=== PATIENT | male | born 1995 | race African-American/Black ===

== ENCOUNTER 2018-06-06 21:27 | Outpatient (CLI) | payer OTHER | END 2018-06-06 21:28 | disposition critical access hospital (66) | LOC: EMS 21:27 | PROVIDERS: ATTEND Surgery | DX: K92.0 Hematemesis (principal); R53.1 Weakness; R42 Dizziness and giddiness | CPT/HCPCS: A0425; A0427 ==

== ENCOUNTER 2018-06-06 21:53 | Inpatient (IN) | payer OTHER ==
[2018-06-06] MEDS ORDERED: PANTOPRAZOLE 40 MG VIAL IVP STA (22:07)
[2018-06-06] MEDS ORDERED: SODIUM CHLORIDE 0.9% 1,000 ML IV ONE ×2 (22:07)
--- NOTE | 2018-06-06 22:11 | ED Physician Documentation ---
History of Present Illness - Stated complaint Stated Complaint: VOMITING, SYNCOPE - Chief complaint Chief Complaint: Abd Pain - History obtained from History obtained from: Patient, EMS - History of Present Illness Timing: Yesterday Pain level max: 5 Pain level now: 4 Improved by: nothing Worsened by: eating, standing - Additonal information Additional information: Patient is a 22-year-old male who is status post wisdom tooth extraction on May 25. He states that he has had continued pain since that time and some minor bleeding. States started feeling lightheaded and dizzy with standing yesterday and near syncopal. Was seen at the [facility] and given IV fluids. No lab work done. States he also has right upper quadrant abdominal pain and vomited tonight x1. There was blood in the vomit. Has been taking aspirin twice a day for the last 2 weeks for his postoperative pain. Denies any trauma. Is not on any other medications at home. Does smoke, does not use alcohol or other drugs. Review of Systems Ten Systems: 10 systems reviewed and negative Constitutional: denies: Fever, Chills Ears: denies: Ear pain Nose: denies: Rhinorrhea / runny nose, Congestion GI: reports: Nausea, Vomiting, Hematemesis (x1) : denies: Dysuria, Frequency, Hesitancy Skin: denies: Rash Musculoskeletal: denies: Neck pain, Back pain Neurologic: denies: Headache PD PAST MEDICAL HISTORY - Past Medical History Past Medical History: No - Past Surgical History Past Surgical History: Yes - Allergies Allergies/Adverse Reactions: Allergies Allergy/AdvReac Type Severity Reaction Status Date / Time No Known Drug Allergies Allergy Verified 06/06/18 22:02 - Social History Does the pt smoke?: Yes Smoking Status: Current every day smoker Does the pt drink ETOH?: Yes Does the pt have substance abuse?: No - Immunizations Immunizations are current?: Yes - POLST Patient has POLST: No PD ED PE NORMAL - Vitals Vital signs reviewed: Yes - General General: Alert and oriented X 3, No acute distress, Other (pale) - HEENT HEENT: PERRL, Moist mucous membranes, Pharynx benign - Neck Neck: Supple, no meningeal sign - Cardiac Cardiac: RRR, Strong equal pulses - Respiratory Respiratory: No respiratory distress, Clear bilaterally - Abdomen Abdomen: Soft, Non distended, Other (TTP RUQ, no peritoneal signs. neg ewing's sign) - Back Back: No CVA TTP, No spinal TTP - Derm Derm: Warm and dry - Extremities Extremities: No edema - Neuro Neuro: Alert and oriented X 3 - Psych Psych: Normal mood, Normal affect Results - Vitals Vitals: Vital Signs - 24 hr 06/06/18 06/06/18 21:55 22:56 Temperature 36.6 C Heart Rate 104 H 102 H Respiratory 16 19 Rate Blood Pressure 111/60 109/67 O2 Saturation 100 100 Oxygen O2 Source Room air - EKG (time done) 2208 Rate: Rate (enter#) (98) Rhythm: NSR [place]: Normal Intervals: Normal DC QRS: Normal Ischemia: ST elevation c/w repol - Labs Labs: Laboratory Tests 06/06/18 06/06/18 06/06/18 22:15 22:15 22:15 WBC 8.3 RBC 1.62 L Hgb 4.7 L* Hct 14.4 L* MCV 89.1 MCH 29.2 MCHC 32.8 RDW 13.0 Plt Count 215 MPV 7.6 Neut # (Auto) 5.7 Lymph # (Auto) 2.0 Cataño # (Auto) 0.5 Eos # (Auto) 0.0 Baso # (Auto) 0.0 Absolute Nucleated RBC 0.02 Nucleated RBC % 0.2 PT 15.9 H INR 1.4 H APTT Sodium 135 Potassium 3.9 Chloride 107 Carbon Dioxide 27 Anion Gap 1.0 L BUN 26 H Creatinine 0.8 Estimated GFR (MDRD) 148 Glucose 114 H Calcium 7.5 L Total Bilirubin 0.4 AST 14 ALT 11 Alkaline Phosphatase 32 L Total Protein 4.5 L Albumin 2.6 L Globulin 1.9 L Albumin/Globulin Ratio 1.4 Lipase 22 Blood Type Blood Type Recheck Antibody Screen Crossmatch IS Only 06/06/18 06/06/18 06/06/18 22:15 22:15 22:40 WBC RBC Hgb Hct MCV MCH MCHC RDW Plt Count MPV Neut # (Auto) Lymph # (Auto) Cataño # (Auto) Eos # (Auto) Baso # (Auto) Absolute Nucleated RBC Nucleated RBC % PT INR APTT 24.7 L Sodium Potassium Chloride Carbon Dioxide Anion Gap BUN Creatinine Estimated GFR (MDRD) Glucose Calcium Total Bilirubin AST ALT Alkaline Phosphatase Total Protein Albumin Globulin Albumin/Globulin Ratio Lipase Blood Type O POSITIVE Cancelled Blood Type Recheck Antibody Screen NEGATIVE Cancelled Crossmatch IS Only See Detail 06/06/18 22:40 WBC RBC Hgb Hct MCV MCH MCHC RDW Plt Count MPV Neut # (Auto) Lymph # (Auto) Cataño # (Auto) Eos # (Auto) Baso # (Auto) Absolute Nucleated RBC Nucleated RBC % PT INR APTT Sodium Potassium Chloride Carbon Dioxide Anion Gap BUN Creatinine Estimated GFR (MDRD) Glucose Calcium Total Bilirubin AST ALT Alkaline Phosphatase Total Protein Albumin Globulin Albumin/Globulin Ratio Lipase Blood Type Blood Type Recheck O POSITIVE Antibody Screen Crossmatch IS Only - Rads (name of study) CT abd/pelvis Radiology: Prelim report reviewed, EMP read contemporaneously, See rad report (normal) PD MEDICAL DECISION MAKING - ED course Complexity details: reviewed results, re-evaluated patient, considered differential, d/w patient, d/w sales and service consultant ED course: Patient is a 22-year-old male with what appears to be a bleeding gastric ulcer, likely secondary to his heavy aspirin use over the past 2 weeks. Given Protonix IV. He found to be significantly anemic. Packed red blood cells ordered. Consent obtained. Discussed the case with Dr. Johnson, hospitalist who accepts. Also spoke with Dr. Larry (gen surg) who will consult. This document was made in part using voice recognition software. While efforts are made to proofread this document, sound alike and grammatical errors may occur. Departure - Departure Disposition: [facility] DC/Xfer Clinical Impression: Upper GI bleed Anemia Qualifiers: Anemia type: unspecified type Qualified Code(s): D64.9 - Anemia, unspecified Condition: Stable
[2018-06-06] MEDS ORDERED: IOPAMIDOL-300 100 ML VIAL ONE (22:16)
[2018-06-06 22:26] LABS: BASOPHILS % (AUTO) 0.4 %; EOSINOPHILS % (AUTO) 0.2 %; LYMPHOCYTES % (AUTO) 23.9 %; MEAN CORPUSCULAR HEMOGLOBIN 29.2 pg (27.0-31.0); MEAN CORPUSCULAR HGB CONC 32.8 g/dL (32.0-36.0); MEAN CORPUSCULAR VOLUME 89.1 fL (80.0-94.0); MEAN PLATELET VOLUME 7.6 fL (7.4-11.4); MONOCYTES # (AUTO) 0.5 10^3/uL (0.0-1.0); NEUTROPHILS # (AUTO) 5.7 10^3/uL (1.5-6.6); NEUTROPHILS % (AUTO) 69.5 %; PLT - PLATELET COUNT 215 10^3/uL (130-450); RED BLOOD COUNT 1.62 10^6/uL (4.70-6.10); WHITE BLOOD COUNT 8.3 x10^3/uL (4.8-10.8)
[2018-06-06 22:27] LABS: HGB - HEMOGLOBIN 4.7 g/dL (14.0-18.0)
[2018-06-06] MEDS ORDERED: IOPAMIDOL-300 100 ML VIAL IVP ONE (22:27)
[2018-06-06 22:30] LABS: INR 1.4 (0.8-1.2); PT - PROTHROMBIN TIME 15.9 secs (9.9-12.6)
[2018-06-06 22:40] LABS: ALBUMIN 2.6 g/dL (3.2-5.5); ALBUMIN/GLOBULIN RATIO 1.4 (1.0-2.2); BILIRUBIN,TOTAL 0.4 mg/dL (0.2-1.0); CALCIUM 7.5 mg/dL (8.5-10.3); CREATININE 0.8 mg/dL (0.6-1.2); TOTAL PROTEIN 4.5 g/dL (6.7-8.2)
[2018-06-06] MEDS ORDERED: HYDROmorphone 0.5 MG/0.5 ML SYRINGE IVP PRN (22:48)
[2018-06-06] MEDS ORDERED: PROCHLORPERAZINE 10 MG/2 ML VIAL IVP PRN (22:48)
[2018-06-06] MEDS ORDERED: ONDANSETRON 4 MG/2 ML VIAL IVP PRN (22:48)
[2018-06-06] MEDS ORDERED: ONDANSETRON ODT 4 MG TABLET TL PRN (22:48)
--- NOTE | 2018-06-06 22:51 | CT Report ---
Reason: upper abd pain, vomiting Procedure Date: 06/06/2018 Accession Number: [id number] / [id number] Procedure: CT - Abdomen/Pelvis W/ CPT Code: FULL RESULT: EXAM: CT ABDOMEN AND PELVIS EXAM DATE: 06/06/2018 10:25 PM. CLINICAL HISTORY: Abdominal pain COMPARISONS: None. TECHNIQUE: Routine helical CT imaging was performed through the abdomen and pelvis. IV contrast: ISOVUE 300 100mL. Enteric contrast: No. Reconstructions: Coronal and sagittal. In accordance with CT protocol optimization, one or more of the following dose reduction techniques were utilized for this exam: automated exposure control, adjustment of mA and/or KV based on patient size, or use of iterative reconstructive technique. FINDINGS: Lung Bases: Unremarkable. Liver: Normal. No masses. Gallbladder/Bile Ducts: Unremarkable. Spleen: Normal. Pancreas: Normal. Adrenal Glands: Normal. Kidneys: Likely small nonobstructing stone within the left kidney. No evidence of obstructing stone or hydronephrosis. Peritoneal Cavity/Bowel: Stomach and small bowel demonstrate no acute abnormalities. Mild wall thickening of the lower right colon without evidence of adjacent inflammatory stranding is probably peristalsis. The appendix is not definitely seen. There is no evidence of right lower quadrant inflammatory stranding to indicate presence of acute appendicitis. There are no enlarged mesenteric or retroperitoneal lymph nodes. Pelvic Organs: No acute pelvic organ abnormalities are seen. Vasculature: No acute vascular findings. No enlarged mesenteric or retroperitoneal lymph nodes. Bones: No significant abnormality. Other: None. IMPRESSION: Negative contrast enhanced CT of the abdomen and pelvis. RADIA
[2018-06-06] MEDS ORDERED: SODIUM CHLORIDE 0.9% 1,000 ML IV SCH (23:00)
--- NOTE | 2018-06-06 23:00 | HISTORY & PHYSICAL EXAMINATION ---
Chief Complaint - Chief Complaint Chief Complaint: Vomiting blood today History of Present Illness - Admitted From Admitted From:: Home/emergency room - History Obtained From Records Reviewed: [facility] History obtained from: Patient of Dr. Daniel Exam Limitations: None - History of Present Illness HPI Comment/Other: 22-year-old white male who is healthy. He has no major medical illnesses. Recently had his wisdom tooth extracted May 25 and has been taking aspirin to control the pain. Has had some minor localized bleeding at his gums. For about 4 or 5 days he has been having black tarry stools. He just thought he was dehydrated so he drank more water. Yesterday he did not feel well. Slightly nauseated and became lightheaded and passed out when he stood up. [facility] and he was given IV fluids but no lab work was done. Today he is continued to feel lightheaded and dizzy every time he tries to stand. He would feel better be sat back down. Tonight he started having epigastric and right upper quadrant abdominal discomfort. He had Nausea withemesis and there was blood in the vomit. He does vaping cigarettes. Stopped smoking tobacco 5 months ago. He does not drink. He does not have history of peptic ulcer disease. He was seen by Dr. Daniel in the emergency room where he was afebrile, slightly tachycardic at 104 with a blood pressure 111/60 and 100% on room air. BUN was mildly elevated at 26. Hemoglobin was 4.7 and hematocrit 14.4. White cell count was 8.3. He is now admitted for upper GI bleed. He will be admitted to our service and we will consult Dr. Larry, general surgery for possible EGD. History - Past Medical History Cardiovascular: reports: None Respiratory: reports: None Neuro: reports: None Endocrine/Autoimmune: reports: None GI: reports: None INTEGRATION ARCHITECT: reports: None : reports: None HEENT: reports: None Psych: reports: None Musculoskeletal: reports: None MRSA Hx?: No - Family & Social History Family History Comment/Other: Mom is 52 years old and is healthy without any problems of diabetes, hypertension, coronary artery disease, kidney disease. Dad is 49 years old and is also completely healthy. 2 half siblings. 1 of them is a type I diabetic by description. No children Living arrangement: At home Living Situation: With spouse/s.o. Social History Notes: He was born in [place] but raised in [place]. From [place] he lived in [place] in [facility]. Once he was in the [place] he [place]. He may be left when he says that he still likes [place] better. He drinks socially. Maybe 1 or 2 drinks a week. He lives with his girlfriend. He started smoking at the age of 18 and quit smoking 5 months ago. One pack per day. He now does vaping. He has no history of recreational substance abuse. - Substance History Use: Uses substance without health or social issues: Other (Vaping) Abuse: Recurrent use of substance despite neg consequences: NONE Dependence: Experiences withdrawal or developed tolerances: NONE - POLST Patient has POLST: No POLST Status: Full Code Meds/Allgy - Allergies Allergies/Adverse Reactions: Allergies Allergy/AdvReac Type Severity Reaction Status Date / Time No Known Drug Allergies Allergy Verified 06/06/18 22:02 Review of Systems - Constitutional Constitutional: reports: Fatigue, Malaise, Weakness, Poor appetite. denies: Fever, Chills, Diaphoresis, Night sweats - Eyes Eyes: denies: Pain, Irritation, Amaurosis, Blurred vision, Vision loss - Ears, Nose & Throat Ears, Nose & Throat: denies: Tinnitus, Vertigo, Nasal pain, Nasal obstruction, Nasal congestion, Postnasal drainage, Sore throat - Cardiovascular Cariovascular: reports: Lightheadedness, Syncope, Exertional dyspnea, Decr. exercise tolerance, Other (All of his orthostatic symptoms or in the last couple of days.). denies: Irregular heart rate, Palpitations, Chest pain, Edema - Respiratory Respiratory: reports: SOB with exertion. denies: Cough, Sputum production, Wheezing, Snoring, Hemoptysis, Orthopnea, SOB at rest, Apnea - Gastrointestinal Gastrointestinal: reports: Abdominal pain, Black stools, Nausea, Vomiting, Tony blood emesis, Poor appetite. denies: Abdominal distention, Constipation, Diarrhea, Change in bowel habits, Rectal bleeding, Bloody stools, Coffee grounds emesis, Reflux/heartburn, Bloating - Genitourinary Genitourinary: denies: Dysuria, Frequency, Urgency, Hematuria, Incontinence, Nocturia - Musculoskeletal Musculoskeletal: denies: Muscle pain, Back pain, Muscle weakness, Gout, Joint pain - Integumentary Integumentary: denies: Rash, Pruritis, Lesions, Pigment changes - Neurological Neurological: reports: General weakness, Dizziness. denies: Focal weakness, Headache, Numbness, Memory problems, Pre-existing deficit, Abnormal gait, Seizures - Psychiatric Psychiatric: denies: Depression, Anxiety, Suicidal, Delusions - Endocrine Endocrine: denies: Polyuria, Polydypsia, Polyphagia - Hematologic/Lymphatic Hematologic/Lymphatic: denies: Anemia, Bruising, Petechiae, Blood clots Prior Level of Functionality: [employer] duty [employer]. Still works full-time As air traffic control. Has no limitations with regards to musculoskeletal or cardiovascular deficiencies. Exam - Vital Signs Reviewed Vital Signs: Yes Vital Signs: Vital Signs x48h Temp Pulse Resp BP Pulse Ox 06/06/18 21:55 36.6 C 104 H 16 111/60 100 - Physical Exam General Appearance: positive: No acute distress, Alert, Other (Pale, pale young black male who is very tired, Significant other is at the bedside) Eyes Bilateral: positive: PERRL, EOMI ENT: positive: Dry mucous membranes. negative: Purulent nasal drainage, Pharyngeal erythema, Oral lesions Neck: positive: No JVD. negative: Stiff neck, Carotid bruit Respiratory: positive: Chest non-tender, No respiratory distress. negative: Wheezes, Rales, Rhonchi Cardiovascular: positive: Regular rate & rhythm, Systolic murmur. negative: Gallop/S4, Friction rub Peripheral Pulses: positive: 1+ Abdomen: positive: Nml bowel sounds, No distention, Tenderness (In the epigastrium that is mild.). negative: Guarding, Rebound Skin: positive: Warm, Dry, Pallor Extremities: positive: Non-tender, Full ROM, No pedal edema Neurologic/Psychiatric: positive: Oriented x3, CN's nml (2-12), Motor nml, Sensation nml Reflexes: Bicep (R): 1+, Bicep (L): 1+, Knee (R): 1+, Knee (L): 1+ Babinski Reflex: Right: Down, Left: Down Conclusion/Plan - Problem List (1) Hematemesis/vomiting blood Conclusion/Plan: Most likely from the history, nonsteroidal induced gastritis if not ulcer. This is a healthy gentleman who does not smoke or drink. Plan: Place in acute inpatient status General surgery consult Hopefully EGD tomorrow or the next day Transfusion Proton pump inhibitors Continue to monitor closely with every 6 hours hemoglobin and hematocrit Octreotide if necessary but not right now Qualifiers: Nausea presence: with nausea Qualified Code(s): K92.0 - Hematemesis (2) Acute post-hemorrhagic anemia Conclusion/Plan: Transfusion of 2 units of packed cells already ordered by ER physician. We will continue to check hemoglobin and hematocrit every 6 hours. Check orthostatics. May need 2 more units after that. (3) Orthostatic hypotension Conclusion/Plan: In the emergency room he is only mildly tachycardic with a normal blood pressure. Will have nursing document orthostasis on the floor with vital signs. In addition to 2 units of packed cells, gently hydrate with normal saline. Keep n.p.o. until we find out from surgery if he is going to get an EGD or not. - Lab Results Fish Bones: 06/06/18 22:15 06/06/18 22:15 - Diagnostic Imaging Results Diagnostic Imaging Results: positive: Final report reviewed Diagnostic Imaging Results Comments: CT ABDOMEN AND PELVIS EXAM DATE: 06/06/2018 10:25 PM. CLINICAL HISTORY: Abdominal pain COMPARISONS: None. TECHNIQUE: Routine helical CT imaging was performed through the abdomen and pelvis. IV contrast: ISOVUE 300 100mL. Enteric contrast: No. Reconstructions: Coronal and sagittal. In accordance with CT protocol optimization, one or more of the following dose reduction techniques were utilized for this exam: automated exposure control, adjustment of mA and/or KV based on patient size, or use of iterative reconstructive technique. FINDINGS: Lung Bases: Unremarkable. Liver: Normal. No masses. Gallbladder/Bile Ducts: Unremarkable. Spleen: Normal. Pancreas: Normal. Adrenal Glands: Normal. Kidneys: Likely small nonobstructing stone within the left kidney. No evidence of obstructing stone or hydronephrosis. Peritoneal Cavity/Bowel: Stomach and small bowel demonstrate no acute abnormalities. Mild wall thickening of the lower right colon without evidence of adjacent inflammatory stranding is probably peristalsis. The appendix is not definitely seen. There is no evidence of right lower quadrant inflammatory stranding to indicate presence of acute appendicitis. There are no enlarged mesenteric or retroperitoneal lymph nodes. Pelvic Organs: No acute pelvic organ abnormalities are seen. Vasculature: No acute vascular findings. No enlarged mesenteric or retroperitoneal lymph nodes. Bones: No significant abnormality. Other: None. IMPRESSION: Negative contrast enhanced CT of the abdomen and pelvis. Core Measures - Anticipated LOS I expect patient to be DC'd or transferred within 96 hours.: Yes - DVT/VTE - Prophylaxis VTE/DVT Device ordered at admit?: Yes
[2018-06-07] MEDS ORDERED: SODIUM CHLORIDE 0.9% 500 ML IV ONE ×2 (02:49→06:26)
[2018-06-07] MEDS: ACETAMINOPHEN 325 MG TABLET PO PRN ×3 (03:29→16:50)
[2018-06-07] MEDS: SODIUM CHLORIDE FLUSH 0.9% 10 ML SYRINGE IVP PRN ×4 (05:15→16:23)
[2018-06-07] MEDS: PANTOPRAZOLE 40 MG VIAL IVP SCH ×2 (06:31→16:24)
--- NOTE | 2018-06-07 09:17 | CONSULTATION NOTE ---
Referring Provider Consult Date: 06/07/18 Chief Complaint - Chief Complaint Chief Complaint: hematemesis History of Present Illness - History of Present Illness HPI Comment/Other: 22 yo man s/p wisdom teeth extraction May 26, took NSAIDs for a number of days prior to developing melena for a few days and finally hematemesis yesterday. He came to the ER at that point. The vomiting stopped spontaneously. He was profoundly anemic in the ER and admitted for workup and transfusion. History - Past Medical History Cardiovascular: reports: None Respiratory: reports: None Neuro: reports: None Endocrine/Autoimmune: reports: None GI: reports: None NATURAL RESOURCES ENGINEER: reports: None : reports: None HEENT: reports: None Psych: reports: None Musculoskeletal: reports: None Derm: reports: None MRSA Hx?: No - Family & Social History Family History Comment/Other: Mom is 52 years old and is healthy without any problems of diabetes, hypertension, coronary artery disease, kidney disease. Dad is 49 years old and is also completely healthy. 2 half siblings. 1 of them is a type I diabetic by description. No children Living arrangement: At home Living Situation: With spouse/s.o. Social History Notes: He was born in [place] but raised in [place]. From [place] he lived in [place] in [facility]. Once he was in the [employer] he has been [place]. He may be left when he says that he still likes [place] better. He drinks socially. Maybe 1 or 2 drinks a week. He lives with his girlfriend. He started smoking at the age of 18 and quit smoking 5 months ago. One pack per day. He now does vaping. He has no history of recreational substance abuse. - Substance History Use: Uses substance without health or social issues: Other (Vaping) Abuse: Recurrent use of substance despite neg consequences: NONE Dependence: Experiences withdrawal or developed tolerances: NONE - POLST Patient has POLST: No POLST Status: Full Code Meds/Allgy - Allergies Allergies/Adverse Reactions: Allergies Allergy/AdvReac Type Severity Reaction Status Date / Time No Known Drug Allergies Allergy Verified 06/06/18 22:02 Review of Systems - Constitutional Constitutional: reports: Fatigue - Neurological Neurological: reports: General weakness - Hematologic/Lymphatic Hematologic/Lymphatic: reports: Anemia Exam - Vital Signs Vital Signs: Vital Signs x48h Temp Pulse Pulse Pulse Pulse Resp BP 06/07/18 09:00 36.8 C 99 103 H 99 16 06/07/18 08:56 36.8 C 97 18 112/53 L 06/07/18 06:57 37.1 C 93 16 97/45 L 06/07/18 06:39 37.3 C 97 16 96/46 L 06/07/18 05:20 37.3 C 100 16 93/47 L 06/07/18 03:20 38.1 C H 110 H 16 96/43 L 06/07/18 02:55 38.1 C H 106 H 16 99/54 L BP BP BP Pulse Ox 06/07/18 09:00 112/53 L 111/59 L 112/53 L 100 06/07/18 08:56 06/07/18 06:57 06/07/18 06:39 06/07/18 05:20 06/07/18 03:20 06/07/18 02:55 - Physical Exam General Appearance: positive: No acute distress Eyes Bilateral: positive: Normal inspection ENT: positive: ENT inspection nml Neck: positive: Nml inspection Respiratory: positive: Chest non-tender Cardiovascular: positive: Regular rate & rhythm Abdomen: positive: Non-tender Back: positive: Nml inspection Skin: positive: Color nml Extremities: positive: Non-tender Neurologic/Psychiatric: positive: Oriented x3 Conclusion/Plan - Diagnosis Diagnosis: GI bleed - Plan Plan: Pt reports no bleeding from the surgical site after extraction. Most likely he had a bleeding peptic ulcer. It seems that the bleeding has stopped now, but he should still be scoped to make sure. The pt agrees. He understands the risks and benefits of an EGD. - Lab Results Fish Bones: 06/06/18 22:15 06/06/18 22:15
[2018-06-07 10:01] LABS: MEAN CORPUSCULAR HEMOGLOBIN 29.9 pg (27.0-31.0); MEAN CORPUSCULAR VOLUME 85.3 fL (80.0-94.0); MEAN PLATELET VOLUME 7.4 fL (7.4-11.4); RED BLOOD COUNT 2.13 10^6/uL (4.70-6.10); RED CELL DISTRIBUTION WIDTH 14.4 % (12.0-15.0); WHITE BLOOD COUNT 8.6 x10^3/uL (4.8-10.8)
[2018-06-07 10:04] LABS: HGB - HEMOGLOBIN 6.4 g/dL (14.0-18.0)
[2018-06-07] MEDS: POLYETHYLENE GLYCOL 3350 17 GM PACKET PO SCH (10:05)
[2018-06-07] MEDS: SODIUM CHLORIDE FLUSH 0.9% 10 ML SYRINGE IVP SCH ×3 (10:06→16:29)
[2018-06-07 11:18] LABS: BILIRUBIN,URINE NEGATIVE (NEGATIVE); CLARITY,URINE CLEAR (CLEAR); GLUCOSE, URINE (UA) NEGATIVE (NEGATIVE); KETONES,URINE (UA) NEGATIVE (NEGATIVE); LEUKOCYTE ESTERASE, URINE NEGATIVE (NEGATIVE); NITRITE,URINE NEGATIVE (NEGATIVE); OCCULT BLOOD,URINE NEGATIVE (NEGATIVE); PH,URINE 6.5 PH (5.0-7.5); PROTEIN,URINE NEGATIVE (NEGATIVE); UROBILINOGEN,URINE 0.2 (NORMAL) E.U./dL (NORMAL)
[2018-06-07] MEDS ORDERED: SODIUM CHLORIDE 0.9% 1,000 ML IV SCH (16:00)
--- NOTE | 2018-06-07 17:22 | PROVIDER PROGRESS NOTE ---
Subjective - Prog Note Date Prog Note Date: 06/07/18 - Subjective Pt reports feeling: Improved Subjective: pt feel better, less dizziness when he walk. He denies chest pain, fever, cough, shortness of breath. per Dr. Larry, pt prefer to have diet, and not have EGD on today afternoon. But now pt request to have EGD. I call Dr. Larry pt request EGD now. state he will be off shift tomorrow but he will tell his colleague to have EGD for pt on tomorrow. Current Medications - Current Medications Current Medications: Active Medications Acetaminophen (Tylenol) 650 mg PO Q4HR PRN PRN Reason: Pain 1 to 4 Last Admin: 06/07/18 16:50 Dose: 650 mg Hydromorphone HCl (Dilaudid Inj Syringe) 0.5 mg IVP Q2H PRN PRN Reason: Pain 8 to 10 Sodium Chloride (Normal Saline 0.9%) 1,000 mls @ 100 mls/hr IV .Q10H [facility] Stop: 06/08/18 01:59 Last Admin: 06/07/18 16:29 Dose: 100 mls/hr Ondansetron HCl (Zofran Inj) 4 mg IVP Q6HR PRN PRN Reason: Nausea / Vomiting Last Admin: 06/07/18 11:06 Dose: 4 mg Ondansetron HCl (Zofran Odt) 4 mg TL Q6HR PRN PRN Reason: Nausea / Vomiting Pantoprazole Sodium (Protonix) 40 mg IVP BIDAC [facility] Last Admin: 06/07/18 16:24 Dose: 40 mg Polyethylene Glycol (Miralax) 17 gm PO DAILY [facility] Last Admin: 06/07/18 10:05 Dose: Not Given Prochlorperazine Edisylate (Compazine Inj) 10 mg IVP Q6HR PRN PRN Reason: Nausea / Vomiting Sodium Chloride (Normal Saline Flush 0.9%) 10 ml IVP PRN PRN PRN Reason: NEEDED PER PROVIDER ORDERS Last Admin: 06/07/18 16:23 Dose: 10 ml Sodium Chloride (Normal Saline Flush 0.9%) 10 ml IVP 0100,0900,1700 [facility] Last Admin: 06/07/18 16:29 Dose: Not Given Aspirin 650 mg PO 0800,1700 PRN 06/07/18 Objective - Vital Signs/Intake & Output Reviewed Vital Signs: Yes Vital Signs: Vital Signs x48h Temp Pulse Pulse Pulse Resp BP BP 06/07/18 16:30 36.7 C 85 20 107/54 L 06/07/18 15:56 36.9 C 89 20 107/56 L 06/07/18 13:54 37.3 C 85 20 97/54 L 06/07/18 13:33 36.8 C 84 18 99/54 L 06/07/18 13:07 36.8 C 85 18 99/54 L 06/07/18 10:45 36.8 C 94 16 Pulse Ox 06/07/18 16:30 06/07/18 15:56 100 06/07/18 13:54 06/07/18 13:33 06/07/18 13:07 99 06/07/18 10:45 100 Intake & Output: Intake & Output 06/04/18 06/05/18 06/06/18 06/07/18 23:59 23:59 23:59 23:59 Intake Total 1000 3448 Output Total 1750 Balance 1000 1698 - Objective General Appearance: positive: No acute distress, Alert. negative: Lethargic Eyes Bilateral: positive: Normal inspection, PERRL, No lid inflammation, Co njunctivae nml ENT: positive: ENT inspection nml, Pharynx nml, No signs of dehydration. negative: Purulent nasal drainage, Pharyngeal erythema, Oral lesions Neck: positive: Nml inspection, Thyroid nml, No JVD, Trachea midline. negative: Thyromegaly, Lymphadenopathy (R), Lymphadenopathy (L), Stiff neck, Swelling/bruising, Tracheal deviation Respiratory: positive: Chest non-tender, No respiratory distress, Breath sounds nml. negative: Wheezes, Rales, Rhonchi Cardiovascular: positive: Regular rate & rhythm, No murmur, No gallop. negative: Irregularly irregular, Extrasystoles, Tachycardia, Bradycardia, JVD present, Systolic murmur, Diastolic murmur Peripheral Pulses: 2+ Radial (R), 2+ Radial (L), 2+ Dorsalis pedis (R), 2+ Dorsalis pedis (L) Abdomen: positive: Non-tender, No organomegaly, Nml bowel sounds, No distention. negative: Tenderness, Guarding, Rebound Back: positive: Nml inspection. negative: CVA tenderness (R), CVA tenderness (L) Skin: positive: Color nml, No rash, Warm, Dry. negative: Cyanosis, Diaphoresis, Pallor Extremities: positive: Non-tender, Full ROM, Nml appearance. negative: Calf tenderness, Srinivas's sign/cords Neurologic/Psychiatric: positive: Oriented x3, Motor nml, Sensation nml, Mood/affect nml. negative: Weakness, Sensory loss, Facial droop, Slurred/abnml speech, Depressed mood/affect - Lab Results Fish Bones: 06/07/18 09:45 06/06/18 22:15 Other Labs: Lab Results x24hrs 06/07/18 06/07/18 06/06/18 Range/Units 10:57 09:45 22:40 WBC 8.6 (4.8-10.8) x10^3/uL RBC 2.13 L (4.70-6.10) 10^6/uL Hgb 6.4 L* (14.0-18.0) g/dL Hct 18.2 L* (42.0-52.0) % MCV 85.3 (80.0-94.0) fL MCH 29.9 (27.0-31.0) pg MCHC 35.0 (32.0-36.0) g/dL RDW 14.4 (12.0-15.0) % Plt Count 177 (130-450) 10^3/uL MPV 7.4 (7.4-11.4) fL Neut # (Auto) (1.5-6.6) 10^3/uL Lymph # (Auto) (1.5-3.5) 10^3/uL [place] # (Auto) (0.0-1.0) 10^3/uL Eos # (Auto) (0.0-0.7) 10^3/uL Baso # (Auto) (0.0-0.1) 10^3/uL Absolute Nucleated RBC x10^3/uL Nucleated RBC % /100WBC PT (9.9-12.6) secs INR (0.8-1.2) APTT (24.9-33.3) secs Sodium (135-145) mmol/L Potassium (3.5-5.0) mmol/L Chloride (101-111) mmol/L Carbon Dioxide (21-32) mmol/L Anion Gap (6-13) BUN (6-20) mg/dL Creatinine (0.6-1.2) mg/dL Estimated GFR (MDRD) (>89) Glucose (70-100) mg/dL Calcium (8.5-10.3) mg/dL Total Bilirubin (0.2-1.0) mg/dL AST (10-42) IU/L ALT (10-60) IU/L Alkaline Phosphatase (42-121) IU/L Total Protein (6.7-8.2) g/dL Albumin (3.2-5.5) g/dL Globulin (2.1-4.2) g/dL Albumin/Globulin Ratio (1.0-2.2) Lipase (22-51) U/L Urine Color YELLOW Urine Clarity CLEAR (CLEAR) Urine pH 6.5 (5.0-7.5) PH Ur Specific [place] 1.020 (1.002-1.030) Urine Protein NEGATIVE (NEGATIVE) mg/dL Urine Glucose (UA) NEGATIVE (NEGATIVE) mg/dL Urine Ketones NEGATIVE (NEGATIVE) mg/dL Urine Occult Blood NEGATIVE (NEGATIVE) Urine Nitrite NEGATIVE (NEGATIVE) Urine Bilirubin NEGATIVE (NEGATIVE) Urine Urobilinogen 0.2 (NORMAL) (NORMAL) E.U./dL Ur Leukocyte Esterase NEGATIVE (NEGATIVE) Ur Microscopic Review NOT INDICATED Urine Culture Comments NOT INDICATED Blood Type Blood Type Recheck O POSITIVE Antibody Screen Crossmatch IS Only 06/06/18 06/06/18 06/06/18 Range/Units 22:40 22:15 22:15 WBC (4.8-10.8) x10^3/uL RBC (4.70-6.10) 10^6/uL Hgb (14.0-18.0) g/dL Hct (42.0-52.0) % MCV (80.0-94.0) fL MCH (27.0-31.0) pg MCHC (32.0-36.0) g/dL RDW (12.0-15.0) % Plt Count (130-450) 10^3/uL MPV (7.4-11.4) fL Neut # (Auto) (1.5-6.6) 10^3/uL Lymph # (Auto) (1.5-3.5) 10^3/uL [place] # (Auto) (0.0-1.0) 10^3/uL Eos # (Auto) (0.0-0.7) 10^3/uL Baso # (Auto) (0.0-0.1) 10^3/uL Absolute Nucleated RBC x10^3/uL Nucleated RBC % /100WBC PT (9.9-12.6) secs INR (0.8-1.2) APTT 24.7 L (24.9-33.3) secs Sodium (135-145) mmol/L Potassium (3.5-5.0) mmol/L Chloride (101-111) mmol/L Carbon Dioxide (21-32) mmol/L Anion Gap (6-13) BUN (6-20) mg/dL Creatinine (0.6-1.2) mg/dL Estimated GFR (MDRD) (>89) Glucose (70-100) mg/dL Calcium (8.5-10.3) mg/dL Total Bilirubin (0.2-1.0) mg/dL AST (10-42) IU/L ALT (10-60) IU/L Alkaline Phosphatase (42-121) IU/L Total Protein (6.7-8.2) g/dL Albumin (3.2-5.5) g/dL Globulin (2.1-4.2) g/dL Albumin/Globulin Ratio (1.0-2.2) Lipase (22-51) U/L Urine Color Urine Clarity (CLEAR) Urine pH (5.0-7.5) PH Ur Specific [place] (1.002-1.030) Urine Protein (NEGATIVE) mg/dL Urine Glucose (UA) (NEGATIVE) mg/dL Urine Ketones (NEGATIVE) mg/dL Urine Occult Blood (NEGATIVE) Urine Nitrite (NEGATIVE) Urine Bilirubin (NEGATIVE) Urine Urobilinogen (NORMAL) E.U./dL Ur Leukocyte Esterase (NEGATIVE) Ur Microscopic Review Urine Culture Comments Blood Type Cancelled O POSITIVE Blood Type Recheck Antibody Screen Cancelled NEGATIVE Crossmatch IS Only See Detail 06/06/18 06/06/18 06/06/18 Range/Units 22:15 22:15 22:15 WBC 8.3 (4.8-10.8) x10^3/uL RBC 1.62 L (4.70-6.10) 10^6/uL Hgb 4.7 L* (14.0-18.0) g/dL Hct 14.4 L* (42.0-52.0) % MCV 89.1 (80.0-94.0) fL MCH 29.2 (27.0-31.0) pg MCHC 32.8 (32.0-36.0) g/dL RDW 13.0 (12.0-15.0) % Plt Count 215 (130-450) 10^3/uL MPV 7.6 (7.4-11.4) fL Neut # (Auto) 5.7 (1.5-6.6) 10^3/uL Lymph # (Auto) 2.0 (1.5-3.5) 10^3/uL [place] # (Auto) 0.5 (0.0-1.0) 10^3/uL Eos # (Auto) 0.0 (0.0-0.7) 10^3/uL Baso # (Auto) 0.0 (0.0-0.1) 10^3/uL Absolute Nucleated RBC 0.02 x10^3/uL Nucleated RBC % 0.2 /100WBC PT 15.9 H (9.9-12.6) secs INR 1.4 H (0.8-1.2) APTT (24.9-33.3) secs Sodium 135 (135-145) mmol/L Potassium 3.9 (3.5-5.0) mmol/L Chloride 107 (101-111) mmol/L Carbon Dioxide 27 (21-32) mmol/L Anion Gap 1.0 L (6-13) BUN 26 H (6-20) mg/dL Creatinine 0.8 (0.6-1.2) mg/dL Estimated GFR (MDRD) 148 (>89) Glucose 114 H (70-100) mg/dL Calcium 7.5 L (8.5-10.3) mg/dL Total Bilirubin 0.4 (0.2-1.0) mg/dL AST 14 (10-42) IU/L ALT 11 (10-60) IU/L Alkaline Phosphatase 32 L (42-121) IU/L Total Protein 4.5 L (6.7-8.2) g/dL Albumin 2.6 L (3.2-5.5) g/dL Globulin 1.9 L (2.1-4.2) g/dL Albumin/Globulin Ratio 1.4 (1.0-2.2) Lipase 22 (22-51) U/L Urine Color Urine Clarity (CLEAR) Urine pH (5.0-7.5) PH Ur Specific [place] (1.002-1.030) Urine Protein (NEGATIVE) mg/dL Urine Glucose (UA) (NEGATIVE) mg/dL Urine Ketones (NEGATIVE) mg/dL Urine Occult Blood (NEGATIVE) Urine Nitrite (NEGATIVE) Urine Bilirubin (NEGATIVE) Urine Urobilinogen (NORMAL) E.U./dL Ur Leukocyte Esterase (NEGATIVE) Ur Microscopic Review Urine Culture Comments Blood Type Blood Type Recheck Antibody Screen Crossmatch IS Only ABX Reporting Has patient been on IV antibiotics over the past 48 hours?: No Sepsis Event Note (H) - Evaluation Current Stage of Sepsis: Ruled out Assessment/Plan - Problem List (1) Hematemesis/vomiting blood Impression: likely from nonsteroidal induced gastritis or ulcer to cause acute bleeding no more hematemesis today continue to finish blood transfusion, will check H&H continue to have PPI continue IVF pt did not have EGD, now he request to have EGD NPO night, follow General surgery consult tomorrow for EGD (2) Acute post-hemorrhagic anemia Conclusion/Plan: pt feel better but still has some dizziness continue another 2 units of blood H&H check Transfusion of 2 units of packed cells already ordered by ER physician. We will continue to check hemoglobin and hematocrit every 6 hours. Check orthostatics. May need 2 more units after that. (3) Orthostatic hypotension Conclusion/Plan: it seems pt did not have orthostatic hypotension. it could be just from acute GI tract bleed, volume void hypotensive finish 4 unit of blood continue light hydration and precaution of fluid overloaded. Qualifiers: Nausea presence: with nausea Qualified Code(s): K92.0 - Hematemesis
[2018-06-07 17:45] LABS: HGB - HEMOGLOBIN 7.1 g/dL (14.0-18.0); MEAN CORPUSCULAR HEMOGLOBIN 29.5 pg (27.0-31.0); MEAN CORPUSCULAR HGB CONC 33.9 g/dL (32.0-36.0); MEAN CORPUSCULAR VOLUME 87.1 fL (80.0-94.0); MEAN PLATELET VOLUME 8.2 fL (7.4-11.4); RED BLOOD COUNT 2.4 10^6/uL (4.70-6.10); RED CELL DISTRIBUTION WIDTH 14.4 % (12.0-15.0); WHITE BLOOD COUNT 8.2 x10^3/uL (4.8-10.8)
[2018-06-08] MEDS: SODIUM CHLORIDE FLUSH 0.9% 10 ML SYRINGE IVP SCH ×3 (01:30→16:31)
[2018-06-08] MEDS: PANTOPRAZOLE 40 MG VIAL IVP SCH ×2 (06:14→16:32)
[2018-06-08] MEDS: SODIUM CHLORIDE FLUSH 0.9% 10 ML SYRINGE IVP PRN ×2 (06:14→06:16)
[2018-06-08 06:28] LABS: BASOPHILS % (AUTO) 0.4 %; EOSINOPHILS # (AUTO) 0.1 10^3/uL (0.0-0.7); EOSINOPHILS % (AUTO) 1.4 %; HGB - HEMOGLOBIN 8.1 g/dL (14.0-18.0); LYMPHOCYTES % (AUTO) 26.3 %; MEAN CORPUSCULAR HEMOGLOBIN 29.8 pg (27.0-31.0); MEAN CORPUSCULAR HGB CONC 34.1 g/dL (32.0-36.0); MEAN CORPUSCULAR VOLUME 87.3 fL (80.0-94.0); MEAN PLATELET VOLUME 7.8 fL (7.4-11.4); MONOCYTES # (AUTO) 0.5 10^3/uL (0.0-1.0); MONOCYTES % (AUTO) 6.2 %; NEUTROPHILS % (AUTO) 65.7 %; PLT - PLATELET COUNT 196 10^3/uL (130-450); RED BLOOD COUNT 2.73 10^6/uL (4.70-6.10); RED CELL DISTRIBUTION WIDTH 14.8 % (12.0-15.0); WHITE BLOOD COUNT 7.6 x10^3/uL (4.8-10.8)
[2018-06-08 06:42] LABS: ALBUMIN 2.9 g/dL (3.2-5.5); ALBUMIN/GLOBULIN RATIO 1.7 (1.0-2.2); BILIRUBIN,TOTAL 0.6 mg/dL (0.2-1.0); CREATININE 0.9 mg/dL (0.6-1.2); MAGNESIUM 1.7 mg/dL (1.7-2.8); TOTAL PROTEIN 4.6 g/dL (6.7-8.2)
[2018-06-08] MEDS: POLYETHYLENE GLYCOL 3350 17 GM PACKET PO SCH (07:58)
[2018-06-08] MEDS ORDERED: LIDO GARGLE 30 ML BOTTLE TOP ONE (11:34)
[2018-06-08] MEDS ORDERED: LIDO GARGLE 30 ML BOTTLE ONE (13:07)
--- NOTE | 2018-06-08 13:26 | ANESTHESIA ---
Pre-Anesthesia VS, & Labs - Diagnosis Diagnosis GI bleed - Procedure EGD Vital Signs: Temp Pulse Resp BP Pulse Ox 36.8 C 74 20 109/62 98 06/08/18 08:00 06/08/18 09:00 06/08/18 08:00 06/08/18 09:00 06/08/18 08:00 Height 6 ft 3 in Weight (kg) 71 kg Body Mass Index 19.5 - NPO >8 hours - Lab Results Current Lab Results: Laboratory Tests 06/08/18 08:15: Cortisol AM Sample 10.4 06/08/18 05:58: Sodium 139, Potassium 3.7, Chloride 107, Carbon Dioxide 27, Anion Gap 5.0 L, BUN 11, Creatinine 0.9, Estimated GFR (MDRD) 129, Glucose 102 H , Calcium 8.0 L, Magnesium 1.7, Total Bilirubin 0.6, AST 13, ALT 10, Alkaline Phosphatase 34 L, Total Protein 4.6 L, Albumin 2.9 L, Globulin 1.7 L, Albumin/ Globulin Ratio 1.7 06/08/18 05:58: WBC 7.6, RBC 2.73 L, Hgb 8.1 L, Hct 23.8 L, MCV 87.3, MCH 29.8, MCHC 34.1, RDW 14.8, Plt Count 196, MPV 7.8, Neut # (Auto) 5.0, Lymph # (Auto) 2.0, [place] # (Auto) 0.5, Eos # (Auto) 0.1, Baso # (Auto) 0.0, Absolute Nucleated RBC 0.03, Nucleated RBC % 0.4 06/07/18 17:30: WBC 8.2, RBC 2.40 L, Hgb 7.1 L, Hct 21.0 L, MCV 87.1, MCH 29.5, MCHC 33.9, RDW 14.4, Plt Count 177, MPV 8.2 06/07/18 09:45: WBC 8.6, RBC 2.13 L, Hgb 6.4 L*, Hct 18.2 L*, MCV 85.3, MCH 29.9, MCHC 35.0, RDW 14.4, Plt Count 177, MPV 7.4 06/06/18 22:40: Blood Type Recheck O POSITIVE 06/06/18 22:40: Blood Type Cancelled, Antibody Screen Cancelled, Crossmatch IS Only See Detail 06/06/18 22:15: APTT 24.7 L 06/06/18 22:15: Blood Type O POSITIVE, Antibody Screen NEGATIVE 06/06/18 22:15: PT 15.9 H, INR 1.4 H 06/06/18 22:15: Sodium 135, Potassium 3.9, Chloride 107, Carbon Dioxide 27, Anion Gap 1.0 L, BUN 26 H, Creatinine 0.8, Estimated GFR (MDRD) 148, Glucose 114 H, Calcium 7.5 L, Total Bilirubin 0.4, AST 14, ALT 11, Alkaline Phosphatase 32 L , Total Protein 4.5 L, Albumin 2.6 L, Globulin 1.9 L, Albumin/Globulin Ratio 1.4, Lipase 22 06/06/18 22:15: WBC 8.3, RBC 1.62 L, Hgb 4.7 L*, Hct 14.4 L*, MCV 89.1, MCH 29.2, MCHC 32.8, RDW 13.0, Plt Count 215, MPV 7.6, Neut # (Auto) 5.7, Lymph # (Auto) 2.0, [place] # (Auto) 0.5, Eos # (Auto) 0.0, Baso # (Auto) 0.0, Absolute Nucleated RBC 0.02, Nucleated RBC % 0.2 Fish Bones: 06/08/18 05:58 06/08/18 05:58 Home Medications and Allergies Home Medications: Ambulatory Orders Aspirin 650 mg PO 0800,1700 PRN 06/07/18 Active Medications Acetaminophen (Tylenol) 650 mg PO Q4HR PRN PRN Reason: Pain 1 to 4 Last Admin: 06/07/18 16:50 Dose: 650 mg Hydromorphone HCl (Dilaudid Inj Syringe) 0.5 mg IVP Q2H PRN PRN Reason: Pain 8 to 10 Ondansetron HCl (Zofran Inj) 4 mg IVP Q6HR PRN PRN Reason: Nausea / Vomiting Last Admin: 06/07/18 11:06 Dose: 4 mg Ondansetron HCl (Zofran Odt) 4 mg TL Q6HR PRN PRN Reason: Nausea / Vomiting Pantoprazole Sodium (Protonix) 40 mg IVP BIDAC [facility] Last Admin: 06/08/18 06:14 Dose: 40 mg Polyethylene Glycol (Miralax) 17 gm PO DAILY [facility] Last Admin: 06/08/18 07:58 Dose: Not Given Prochlorperazine Edisylate (Compazine Inj) 10 mg IVP Q6HR PRN PRN Reason: Nausea / Vomiting Sodium Chloride (Normal Saline Flush 0.9%) 10 ml IVP PRN PRN PRN Reason: NEEDED PER PROVIDER ORDERS Last Admin: 06/08/18 06:16 Dose: 10 ml Sodium Chloride (Normal Saline Flush 0.9%) 10 ml IVP 0100,0900,1700 [facility] Last Admin: 06/08/18 07:58 Dose: 10 ml Aspirin 650 mg PO 0800,1700 PRN 06/07/18 Allergies/Adverse Reactions: Allergies Allergy/AdvReac Type Severity Reaction Status Date / Time No Known Drug Allergies Allergy Verified 06/06/18 22:02 Anes History & Medical History - Anesthetic History Anesthesia Complications: reports: No previous complications (vapes now) - Medical History Cardiovascular: reports: None Pulmonary: reports: None Gastrointestinal: reports: None Urinary: reports: None Neuro: reports: None Musculoskeletal: reports: None Endocrine/Autoimmune: reports: None Blood Disorders: reports: Anemia Skin: reports: None Smoking Status: Former smoker Exam General: Alert Dental: WNL Mouth Openin Fingerbreadth Mallampati classification: II Thyromental Distance: greater than 6 cm Respiratory: Lungs clear Cardiovascular: Regular rate Plan Anesthesia Type: MAC Consent for Procedure(s) Verified and Reviewed: Yes Code Status: Attempt Resuscitation ASA classification: 2-Mild systemic disease Is this case an emergency?: Yes
[2018-06-08] MEDS ORDERED: LACTATED RINGERS 1,000 ML IV ONE (13:46)
--- NOTE | 2018-06-08 13:47 | PROVIDER PROGRESS NOTE ---
Subjective - General Admit Date: 06/06/18 Procedure Date: 06/08/18 Post Op Days: 0 Procedure Performed: Not yet. - Review of Systems General: positive: No symptoms HEENT: positive: No symptoms Pulmonary: positive: No symptoms Cardiovascular: positive: No symptoms Gastrointestinal: positive: No symptoms, Melena (Resolving.), Other (Hematemesis resolved.) Genitourinary: positive: No symptoms Musculoskeletal: positive: No symptoms Skin: positive: No symptoms Psychiatric: positive: No symptoms Objective - Patient Data Reviewed Vital Signs: Yes Vital Signs: Vital Signs x48h Temp Pulse Pulse Pulse Pulse Resp BP 06/08/18 09:00 86 86 74 06/08/18 08:00 36.8 C 83 20 114/65 BP BP BP Pulse Ox 06/08/18 09:00 109/70 122/69 109/62 06/08/18 08:00 98 Weight: Weight 06/06/18 06/07/18 06/08/18 23:59 23:59 23:59 Weight (kg) 71 kg Intake & Output: Intake and Output Totals x24h 06/06/18 06/07/18 06/08/18 23:59 23:59 23:59 Intake Total 1000 4591.333 756.667 Output Total 1750 Balance 1000 2841.333 756.667 - Lab Results Lab Results: 06/08/18 05:58 06/08/18 05:58 Other Lab Results: Lab Results x24hrs 06/08/18 06/08/18 06/08/18 Range/Units 08:15 05:58 05:58 WBC 7.6 (4.8-10.8) x10^3/uL RBC 2.73 L (4.70-6.10) 10^6/uL Hgb 8.1 L (14.0-18.0) g/dL Hct 23.8 L (42.0-52.0) % MCV 87.3 (80.0-94.0) fL MCH 29.8 (27.0-31.0) pg MCHC 34.1 (32.0-36.0) g/dL RDW 14.8 (12.0-15.0) % Plt Count 196 (130-450) 10^3/uL MPV 7.8 (7.4-11.4) fL Neut # (Auto) 5.0 (1.5-6.6) 10^3/uL Lymph # (Auto) 2.0 (1.5-3.5) 10^3/uL [place] # (Auto) 0.5 (0.0-1.0) 10^3/uL Eos # (Auto) 0.1 (0.0-0.7) 10^3/uL Baso # (Auto) 0.0 (0.0-0.1) 10^3/uL Absolute Nucleated RBC 0.03 x10^3/uL Nucleated RBC % 0.4 /100WBC Sodium 139 (135-145) mmol/L Potassium 3.7 (3.5-5.0) mmol/L Chloride 107 (101-111) mmol/L Carbon Dioxide 27 (21-32) mmol/L Anion Gap 5.0 L (6-13) BUN 11 (6-20) mg/dL Creatinine 0.9 (0.6-1.2) mg/dL Estimated GFR (MDRD) 129 (>89) Glucose 102 H (70-100) mg/dL Calcium 8.0 L (8.5-10.3) mg/dL Magnesium 1.7 (1.7-2.8) mg/dL Total Bilirubin 0.6 (0.2-1.0) mg/dL AST 13 (10-42) IU/L ALT 10 (10-60) IU/L Alkaline Phosphatase 34 L (42-121) IU/L Total Protein 4.6 L (6.7-8.2) g/dL Albumin 2.9 L (3.2-5.5) g/dL Globulin 1.7 L (2.1-4.2) g/dL Albumin/Globulin Ratio 1.7 (1.0-2.2) Cortisol AM Sample 10.4 ug/dL Blood Type Antibody Screen Crossmatch IS Only 06/07/18 06/06/18 Range/Units 17:30 22:40 WBC 8.2 (4.8-10.8) x10^3/uL RBC 2.40 L (4.70-6.10) 10^6/uL Hgb 7.1 L (14.0-18.0) g/dL Hct 21.0 L (42.0-52.0) % MCV 87.1 (80.0-94.0) fL MCH 29.5 (27.0-31.0) pg MCHC 33.9 (32.0-36.0) g/dL RDW 14.4 (12.0-15.0) % Plt Count 177 (130-450) 10^3/uL MPV 8.2 (7.4-11.4) fL Neut # (Auto) (1.5-6.6) 10^3/uL Lymph # (Auto) (1.5-3.5) 10^3/uL [place] # (Auto) (0.0-1.0) 10^3/uL Eos # (Auto) (0.0-0.7) 10^3/uL Baso # (Auto) (0.0-0.1) 10^3/uL Absolute Nucleated RBC x10^3/uL Nucleated RBC % /100WBC Sodium (135-145) mmol/L Potassium (3.5-5.0) mmol/L Chloride (101-111) mmol/L Carbon Dioxide (21-32) mmol/L Anion Gap (6-13) BUN (6-20) mg/dL Creatinine (0.6-1.2) mg/dL Estimated GFR (MDRD) (>89) Glucose (70-100) mg/dL Calcium (8.5-10.3) mg/dL Magnesium (1.7-2.8) mg/dL Total Bilirubin (0.2-1.0) mg/dL AST (10-42) IU/L ALT (10-60) IU/L Alkaline Phosphatase (42-121) IU/L Total Protein (6.7-8.2) g/dL Albumin (3.2-5.5) g/dL Globulin (2.1-4.2) g/dL Albumin/Globulin Ratio (1.0-2.2) Cortisol AM Sample ug/dL Blood Type Cancelled Antibody Screen Cancelled Crossmatch IS Only See Detail - Current Medications Current Medications: Current Medications Generic Name Dose Route Start Last Admin Trade Name Freq PRN Reason Stop Dose Admin Acetaminophen 650 mg 06/06/18 22:48 06/07/18 16:50 Tylenol PO 650 mg Q4HR PRN Administration Pain 1 to 4 Ondansetron HCl 4 mg 06/06/18 22:48 11/18/18 11:06 Zofran Inj IVP 4 mg Q6HR PRN Administration Nausea / Vomiting Pantoprazole Sodium 40 mg 06/07/18 07:00 06/08/18 06:14 Protonix IVP 40 mg BIDAC DOMINIQUE Administration Polyethylene Glycol 17 gm 06/07/18 09:00 06/08/18 07:58 Miralax PO Not Given DAILY DOMINIQUE Sodium Chloride 10 ml 06/06/18 22:48 06/08/18 06:16 Normal Saline Flush 0.9% IVP 10 ml PRN PRN Administration NEEDED PER PROVIDER ORDERS Sodium Chloride 10 ml 06/07/18 01:00 06/08/18 07:58 Normal Saline Flush 0.9% IVP 10 ml 0100,0900,1700 DOMINIQUE Administration - Physical Exam General Appearance: positive: No acute distress Eyes Bilateral: positive: No lid inflammation, Conjunctivae nml, No scleral icterus ENT: positive: Dry mucous membranes Neck: positive: Trachea midline Respiratory: positive: Chest non-tender, No respiratory distress, Breath sounds nml Cardiovascular: positive: Regular rate & rhythm Abdomen: positive: Non-tender, No organomegaly, Nml bowel sounds, No distention Skin: positive: Color nml Extremities: positive: Nml appearance Neurologic/Psychiatric: positive: Oriented x3 Impression/Plan - Problem List Problem List: Patient with hematemesis and melena following a course of nonsteroidal anti- inflammatory drugs taken to treat wisdom tooth pain. Patient presented to our emergency department profoundly anemic. Melena is resolving hematemesis has resolved. Esophagogastroduodenoscopy with possible biopsies and/or polypectomies. Indications, procedure, alternatives (such as barium studies and even no procedure at all) and risks including but not limited to perforation requiring operative repair, bleeding with its risks, and were fully explained to him. I explained that his posterior oropharynx would also be anesthetized for the procedure. I explained that MAC anesthesia is associated with a higher i ncidence of intestinal perforation. Review of his history does not reveal any significant systemic disease that would contraindicate use of conscious sedation or MAC anesthesia. All questions were fully answered. Verbal and written consent was obtained. The patient in preparation for his esophag ogastroduodenoscopy will be n.p.o. 30 minutes of [id number] time spent with the patient the majority of which was spent in discussion, coordination of his care and completion of the requisite paperwork
[2018-06-08] MEDS ORDERED: PROPOFOL 200 MG/20 ML VIAL IVP ONE (14:30)
[2018-06-08] MEDS ORDERED: LIDOCAINE-MPF 2% 5 ML VIAL IM ONE (14:30)
--- NOTE | 2018-06-08 16:33 | Discharge Plan ---
Discharge Plan Disposition: 01 Home, Self Care Condition: Stable Prescriptions: Omeprazole 40 mg PO BID #30 capsule. Sucralfate [Carafate] 1 gm PO BID #30 ml Diet: Regular Activity Restrictions: Activity as Tolerated Shower Restrictions: No (fall precaution) Instruction Topics: Gastric Ulcer, Bleeding Gastrointestinal, Omeprazole tablets OTC, Sucralfate tablets Additional Instructions or Follow Up instructions: You may followup your PCP in one week, may followup Dr. Timothy He in 6 weeks to check your gastric ulcer healing. Advise you hold Aspirin for your gastric ulcer healing. You are prescribed Omeprazole and Carafate for gastric ulcer healing. Should your symptoms return or worsen, you may present ER or call 911 for help No Smoking: If you smoke, Please STOP! Call for help.
--- NOTE | 2018-06-08 16:47 | DISCHARGE SUMMARY ---
Discharge Summary Discharge Date: 06/08/18 Discharging Provider: OBRIEN Condition at Discharge: Stable Discharge Disposition: 01 Home, Self Care Discharge Facility Name: home - DIAGNOSES Admission Diagnoses: (1) Hematemesis/vomiting blood (2) Acute post-hemorrhagic anemia (3) Orthostatic hypotension Discharge Diagnoses with Status of Each Condition: (1) Hematemesis/vomiting blood resolved. No vomiting blood in hospital. pt's HGB is 8.1 now from 4.7 at admission after 4 units of blood was transfused. pt had EGD done by surgeon. gastric ulcer was found but no acute bleeding site was found in EGD, per surgeon Dr. He report. pt was prescribe PPI bid and carafate to home. pt is advised to hold his Aspirin or other NSAIDs for his gastric healing. and follow up Surgeon in 6 weeks. pt denies any GI rectal bleeding in the hospital. (2) Acute post-hemorrhagic anemia pt's HGB is 8.1 now from 4.7 at admission after 4 units of blood was transfused. (3) Orthostatic hypotension Pt's BP is 124/64, no dizziness. it may be caused by acute blood loss. - HPI History of Present Illness: refer from Dr. Johnson's HPI on 06/06/18 for pt as the followin-year-old white male who is healthy. He has no major medical illnesses. Recently had his wisdom tooth extracted May 25 and has been taking aspirin to control the pain. Has had some minor localized bleeding at his gums. For about 4 or 5 days he has been having black tarry stools. He just thought he was dehydrated so he drank more water. Yesterday he did not feel well. Slightly nauseated and became lightheaded and passed out when he stood up. [facility] and he was given IV fluids but no lab work was d one. Today he is continued to feel lightheaded and dizzy every time he tries to stand. He would feel better be sat back down. Tonight he started having epigastric and right upper quadrant abdominal discomfort. He had Nausea withemesis and there was blood in the vomit. He does vaping cigarettes. S topped smoking tobacco 5 months ago. He does not drink. He does not have history of peptic ulcer disease. He was seen by Dr. Daniel in the emergency room where he was afebrile, slightly tachycardic at 104 with a blood pressure 111/60 and 100% on room air. BUN was mildly elevated at 26. Hemoglobin was 4.7 and hematocrit 14.4. White cell count was 8.3. He is now admitted for upper GI bleed. He will be admitted to our service and we will consult Dr. Larry, general surgery for possible EGD. - HOSPITAL COURSE Hospital Course: pt was admitted for GI bleeding and vomiting of blood. pt's HGB is 8.1 now from 4.7 at admission after 4 units of blood was transfused. pt had EGD done by surgeon. gastric ulcer was found but no acute bleeding site was found in EGD, per surgeon Dr. Rojas report. pt was prescribe PPI bid and carafate to home. pt is advised to hold his Aspirin or other NSAIDs for his gastric healing. and follow up Surgeon in 6 weeks. Pt's BP is 124/64, there is no dizziness, shortness of breath. pt tolerate regular diet and happy to be d/c to home. - ALLERGIES Allergies/Adverse Reactions: Allergies Allergy/AdvReac Type Severity Reaction Status Date / Time No Known Drug Allergies Allergy Verified 06/06/18 22:02 - MEDICATIONS Home Medications: Ambulatory Orders Medication Instructions Recorded Confirmed Omeprazole 40 mg PO BID #30 capsule. 06/08/18 Sucralfate [Carafate] 1 gm PO BID #30 ml 06/08/18 - PHYSICAL EXAM AT DISCHARGE General Appearance: positive: No acute distress, Alert. negative: Lethargic Eyes Bilateral: positive: Normal inspection, PERRL, No lid inflammation, Conjunctivae nml ENT: positive: ENT inspection nml, Pharynx nml, No signs of dehydration. negative: Purulent nasal drainage, Pharyngeal erythema, Oral lesions Neck: positive: Nml inspection, Thyroid nml, No JVD, Trachea midline. negative: Thyromegaly, Lymphadenopathy (R), Lymphadenopathy (L), Stiff neck, Carotid brui t, Swelling/bruising, Tracheal deviation Respiratory: positive: Chest non-tender, No respiratory distress, Breath sounds nml. negative: Wheezes, Rales, Rhonchi Cardiovascular: positive: Regular rate & rhythm, No murmur, No gallop. negative: Irregularly irregular, Extrasystoles, Tachycardia, Bradycardia, JVD present, Systolic murmur, Diastolic murmur Peripheral Pulses: positive: 2+ Abdomen: positive: Non-tender, No organomegaly, Nml bowel sounds, No distention. negative: Tenderness, Guarding, Rebound Rectal: negative: Bloody stool Back: positive: Nml inspection. negative: CVA tenderness (R), CVA tenderness (L) Skin: positive: Color nml, No rash, Warm, Dry. negative: Cyanosis, Diaphoresis, Pallor - LABS Result Diagrams: 06/08/18 05:58 06/08/18 05:58 - SEPSIS Current Stage of Sepsis: Ruled out - FOLLOW UP Follow Up: You may followup your PCP in one week, may followup Dr. Timothy He in 6 weeks to check your gastric ulcer healing. Advise you hold Aspirin for your gastric ulcer healing. You are prescribed Omeprazole and Carafate for gastric ulcer healing. Should your symptoms return or worsen, you may present ER or call 911 for help - TIME SPENT Time Spent in Discharge (Minutes): 50
[2018-06-08 17:09] VITALS: BP 124/64
== END 2018-06-08 17:30 | disposition home or self-care (01) | DRG 378 ==
LOC: ED 21:53 → MS3 22:48 → MS2 22:48 → UNDODISIN 06-08 17:30
PROVIDERS: ADMIT Specialist; ATTEND Nurse Practitioner Gerontology
PROC: 30233N1 Transfusion of Nonautologous Red Blood Cells into Peripheral Vein, Percutaneous Approach (ICD-10-PCS; 2018-06-07)
PROC: 0DB78ZX Excision of Stomach, Pylorus, Via Natural or Artificial Opening Endoscopic, Diagnostic (ICD-10-PCS; principal; 2018-06-08 13:00)
DX: K25.4 Chronic or unspecified gastric ulcer with hemorrhage (principal); D62 Acute posthemorrhagic anemia; T39.015A Adverse effect of aspirin, initial encounter; I95.1 Orthostatic hypotension; Z98.818 Other dental procedure status; Z87.891 Personal history of nicotine dependence
CPT/HCPCS: 36415; 74177; 80053; 81001; 81003; 82533; 83690; 83735; 85014; 85018; 85025; 85027; 85610; 85730; 86850; 86900; 86901; 86920; 87081; 87086; 93005; 96361; 96374; 99283; 99284; 99285

== ENCOUNTER 2018-08-17 09:40 | Day surgery (SDC) | payer OTHER ==
[2018-08-17] MEDS ORDERED: LACTATED RINGERS 1,000 ML IV ONE (10:00)
[2018-08-17] MEDS ORDERED: LIDO GARGLE 30 ML BOTTLE ONE (11:10)
[2018-08-17] MEDS ORDERED: MIDAZOLAM 2 MG/2 ML VIAL IVP ONE (11:15)
[2018-08-17] MEDS ORDERED: fentaNYL 100 MCG/2 ML VIAL IVP ONE (11:15)
[2018-08-17] MEDS ORDERED: BENZOCAINE/TETRACAINE/BUTAMBEN 20 GM TOP ONE (11:18)
[2018-08-17 12:28] VITALS: BP 121/60
== END 2018-08-17 09:41 | disposition home or self-care (01) ==
LOC: SDS 09:40
PROVIDERS: ATTEND Surgery
PROC: 0DB78ZX Excision of Stomach, Pylorus, Via Natural or Artificial Opening Endoscopic, Diagnostic (ICD-10-PCS; 2018-08-17)
PROC: 0DB48ZX Excision of Esophagogastric Junction, Via Natural or Artificial Opening Endoscopic, Diagnostic (ICD-10-PCS; principal; 2018-08-17 11:00)
DX: K25.9 Gastric ulcer, unspecified as acute or chronic, without hemorrhage or perforation (principal); F17.290 Nicotine dependence, other tobacco product, uncomplicated
CPT/HCPCS: 43250; 87081; A9270; J7120